=== PATIENT | female | born 1970 | race Caucasian/White ===

== ENCOUNTER 2017-08-27 15:43 | Observation (INO) | payer MEDICAID, OTHER ==
[~2017-08-27] VITALS: Ht 165.1 cm; Wt 86.6 kg
[~2017-08-27 15:43] MED LIST: ESTR42.5V PV; TRAZ50TA4 PO; ZOLO50TA PO
[2017-08-27 15:49] VITALS: BP 141/77; PULSE 100; TEMP 98.3; O2SAT 98
[2017-08-27] MEDS ORDERED: DULO1CAP2 PO (17:09)
[2017-08-27] MEDS ORDERED: AMIT50TA3 PO (17:09)
[2017-08-27 17:46] LABS: AUTOMATED NEUTROPHIL # 3.7 TH/MM3 (1.8-7.7); BASOPHIL % 0.6 % (0.0-2.0); EOSINOPHIL # 0.3 TH/MM3 (0-0.4); HEMATOCRIT 45.1 % (35.0-46.0); HEMO FLAGS DIFF FINAL; LYMPH % 30.7 % (9.0-44.0); MEAN CELL VOLUME 89.8 FL (80.0-100.0); MEAN CORPUSCULAR HEMOGLOBIN 29.8 PG (27.0-34.0); MEAN CORPUSCULAR HGB CONC 33.2 % (32.0-36.0); MONO % 6.5 % (0.0-8.0); NEUT % 58.2 % (16.0-70.0); PLATELET COUNT 249 TH/MM3 (150-450); RED BLOOD COUNT 5.03 MIL/MM3 (4.00-5.30); RED CELL DISTRIBUTION WIDTH 12.4 % (11.6-17.2); WHITE BLOOD COUNT 6.4 TH/MM3 (4.0-11.0)
[2017-08-27 17:53] LABS: CHLORIDE 101 MEQ/L (98-107); POTASSIUM 3.7 MEQ/L (3.5-5.1); SODIUM (NA) 137 MEQ/L (136-145)
[2017-08-27 17:57] LABS: ANION GAP 6 MEQ/L (5-15); BICARBONATE 29.7 MEQ/L (21.0-32.0); BLOOD UREA NITROGEN 15 MG/DL (7-18)
[2017-08-27 17:58] LABS: APTT (PATIENT) 27.3 SEC (24.3-30.1); PROTHROMBIN TIME - PATIENT 10.7 SEC (9.8-11.6)
[2017-08-27 18:00] LABS: ALT (GPT) 90 U/L (10-53); AST (GOT) 68 U/L (15-37); GLOMERULAR FILTRATION RATE 82 ML/MIN (>89)
[2017-08-27 18:02] LABS: TOTAL BILIRUBIN ADULT 0.4 MG/DL (0.2-1.0)
[2017-08-27 18:03] VITALS: BP 120/81; PULSE 81; RESP 16; O2SAT 100
[2017-08-27 18:03] LABS: ALKALINE PHOSPHATASE 99 U/L (45-117)
--- NOTE | 2017-08-27 18:14 | PD ---
HPI Chief Complaint: Numbness/Tingling Time Seen by Provider: 17:06 Travel History International Travel<30 days: No Contact w/Intl Traveler<30days: No Traveled to known affect area: No History of Present Illness HPI This is a 47-year-old female who reports that she has been told she may have lupus in the past 2 presents to the emergency department having not felt right all day ever since she woke up this morning. Her family says that this morning she started to curse and throw things. She says throughout the day she has developed some numbness and tingling in her right arm and right leg and is having some trouble getting her words out. She says these symptoms while been happening for a day. They're constant and severe and she is not acting herself. She says that her doctor ordered an outpatient MRI on her which she just got the results of and they told her that she has something that looks like white matter disease and she needs to follow-up with a neurologist. She's not seen a neurologist yet. PFSH Past Medical History Arthritis: Yes Asthma: Yes Autoimmune Disease: Yes (LUPUS) Depression: Yes Heart Rhythm Problems: Yes (MVR) Cardiovascular Problems: Yes (mitral valve prolapse and reguritation ) Diminished Hearing: No Gastrointestinal Disorders: Yes (REFLUX) Genitourinary: Yes (REFLUX) Immune Disorder: Yes (LUPUS) Respiratory: Yes (asthma) Tetanus Vaccination: < 5 Years Influenza Vaccination: Yes ?: Not : 4 Para: 2 Miscarriage: 2 Past Surgical History Appendectomy: Yes Section: No Cholecystectomy: Yes Hysterectomy: Yes (partial) Social History Alcohol Use: Yes ("SOCIAL") Tobacco Use: No Substance Use: No Allergies-Medications (Allergen,Severity, Reaction): Coded Allergies: Sulfa (Sulfonamide Antibiotics) (Unverified Allergy, Mild, RASH, 08/27/17) Reported Meds & Prescriptions Reported Meds & Active Scripts Active Reported Duloxetine DR (Duloxetine HCl) 30 Mg Capdr 30 Mg PO DAILY Amitriptyline (Amitriptyline HCl) 50 Mg Tab 50 Mg PO HS Review of Systems Except as stated in HPI: all other systems reviewed are Neg Physical Exam Narrative GENERAL:Well appearing, no acute distress SKIN: Focused skin assessment warm and dry. HEAD: Atraumatic. Normocephalic. EYES: Pupils equal and round. No injection or drainage. ENT: Moist mucous membranes NECK: Trachea midline. CARDIOVASCULAR: Regular rate and rhythm. No murmur appreciated. RESPIRATORY: Clear to auscultation. Breath sounds equal bilaterally. GASTROINTESTINAL: Abdomen soft, non-tender, nondistended. MUSCULOSKELETAL: No obvious deformities. NEUROLOGICAL: Awake and alert. No obvious cranial nerve deficits. Intermittent word finding difficulty, ataxia of the right upper extremity which seems a little jagged an abrupt and may be nonphysiologic, 4+ out of 5 strength in the right upper extremity and right lower extremity with 5 out of 5 strength in the left upper and left lower extremities. PSYCHIATRIC: Appropriate mood and affect; insight and judgment normal. Data Data Last Documented VS Vital Signs Date Time Temp Pulse Resp B/P (MAP) Pulse Ox O2 Delivery O2 Flow Rate FiO2 08/27/17 18:03 81 16 120/81 (94) 100 08/27/17 15:49 98.3 Orders Orders Complete Blood Count With Diff (08/27/17 17:22) Comprehensive Metabolic Panel (08/27/17 17:22) ^ Insert Iv (08/27/17 17:22) Prothrombin Time / Inr (Pt) (08/27/17 17:22) Act Partial Throm Time (Ptt) (08/27/17 17:22) Ct Brain W/O Iv Contrast(Rout) (08/27/17 ) Labs Laboratory Tests Test 08/27/17 17:33 White Blood Count 6.4 TH/MM3 Red Blood Count 5.03 MIL/MM3 Hemoglobin 15.0 GM/DL Hematocrit 45.1 % Mean Corpuscular Volume 89.8 FL Mean Corpuscular Hemoglobin 29.8 PG Mean Corpuscular Hemoglobin Concent 33.2 % Red Cell Distribution Width 12.4 % Platelet Count 249 TH/MM3 Mean Platelet Volume 7.7 FL Neutrophils (%) (Auto) 58.2 % Lymphocytes (%) (Auto) 30.7 % Monocytes (%) (Auto) 6.5 % Eosinophils (%) (Auto) 4.0 % Basophils (%) (Auto) 0.6 % Neutrophils # (Auto) 3.7 TH/MM3 Lymphocytes # (Auto) 2.0 TH/MM3 Monocytes # (Auto) 0.4 TH/MM3 Eosinophils # (Auto) 0.3 TH/MM3 Basophils # (Auto) 0.0 TH/MM3 CBC Comment DIFF FINAL Differential Comment Prothrombin Time 10.7 SEC Prothromb Time International Ratio 1.0 RATIO Activated Partial Thromboplast Time 27.3 SEC Blood Urea Nitrogen 15 MG/DL Creatinine 0.75 MG/DL Random Glucose 92 MG/DL Total Protein 7.9 GM/DL Albumin 3.8 GM/DL Calcium Level 8.9 MG/DL Alkaline Phosphatase 99 U/L Aspartate Amino Transf (AST/SGOT) 68 U/L Alanine Aminotransferase (ALT/SGPT) 90 U/L Total Bilirubin 0.4 MG/DL Sodium Level 137 MEQ/L Potassium Level 3.7 MEQ/L Chloride Level 101 MEQ/L Carbon Dioxide Level 29.7 MEQ/L Anion Gap 6 MEQ/L Estimat Glomerular Filtration Rate 82 ML/MIN MDM Medical Decision Making Medical Screen Exam Complete: Yes Emergency Medical Condition: Yes Interpretation(s) No leukocytosis Electrolytes are reassuring Coags are normal Differential Diagnosis Ischemic stroke, hemorrhagic stroke, multiple sclerosis, tumor Narrative Course This is a 47-year-old female who presents to the emergency department with strange symptoms. She woke with some this morning. They range from aggression and cursing to numbness in her right arm and right leg and word finding difficulty. Labs are reassuring. CT of the head is unremarkable. Her neurologic exam is somewhat inconsistent and may be nonphysiologic.Despite this given her history of possible lupus and her objective findings on exam I think she should stay in the hospital for a stroke and neurologic evaluation. Diagnosis Primary Impression: Weakness Admitting Information Admitting Physician Requests: Observation Alejandra Gonsalez MD Aug 27, 2017 18:14
--- NOTE | 2017-08-27 18:46 | RADRPT ---
EXAM DATE/TIME: 08/27/2017 18:26 [facility] COMPARISON: No previous studies available for comparison. INDICATIONS : Altered mental status. RADIATION DOSE: 57.32 CTDIvol (mGy) MEDICAL HISTORY : Cardiovascular disease. Gastroesophageal reflux disease. Renal calculi.Mitral valve prolapse, Lupus, UTI's SURGICAL HISTORY : Appendectomy. Cholecystectomy.Partial hysterectomy ENCOUNTER: Initial ACUITY: 1 day PAIN SCALE: 0/10 LOCATION: cranial TECHNIQUE: Multiple contiguous axial images were obtained of the head. Using automated exposure control and adj ustment of the mA and/or kV according to patient size, radiation dose was kept as low as reasonably a chievable to obtain optimal diagnostic quality images. DICOM format image data is available electro nically for review and comparison. FINDINGS: CEREBRUM: The ventricles are normal for age. No evidence of midline shift, mass lesion, hemorrhage or acute in farction. No extra-axial fluid collections are seen. POSTERIOR FOSSA: The cerebellum and brainstem are intact. The 4th ventricle is midline. The cerebellopontine angle i s unremarkable. EXTRACRANIAL: The visualized portion of the orbits is intact. SKULL: The calvaria is intact. No evidence of skull fracture. CONCLUSION: No acute disease. Tru Phillips MD on August 27, 2017 at 18:44 Board Certified Radiologist. This report was verified electronically.
[2017-08-27 19:00] VITALS: BP 136/79; PULSE 84; RESP 18; O2SAT 100
[2017-08-27] MEDS ORDERED: GADODIAMIDE PF 287 MG/ML 20 ML VIAL (for RAD MRI) IVCONTRAST ONE (19:21)
[2017-08-27] MEDS ORDERED: SODIUM CHLORIDE 0.9% FLUSH 10 ML FLUSH IV FLUSH PRN (19:30)
[2017-08-27] MEDS ORDERED: ACETAMINOPHEN 325 MG TAB PO PRN (19:30)
[2017-08-27] MEDS ORDERED: BISACODYL 10 MG SUPP RECTAL PRN (19:30)
[2017-08-27] MEDS ORDERED: SENNOSIDES 8.6 MG TAB PO PRN (19:30)
[2017-08-27] MEDS ORDERED: MAGNESIUM HYDROXIDE SUSP 30 ML CUP PO PRN (19:30)
[2017-08-27] MEDS ORDERED: ACETAMINOPHEN/HYDROcodone 325 MG/5 MG TAB PO PRN (19:30)
[2017-08-27] MEDS ORDERED: ONDANSETRON HCL 4 MG/2 ML VIAL IVP PRN (19:30)
[2017-08-27] MEDS ORDERED: LACTULOSE SYRUP 20 GM/30 ML CUP PO PRN (19:30)
[2017-08-27 20:23] LABS: BLOOD, URINE NEG (NEG); GLUCOSE,URINE NEG (NEG); KETONE, URINE NEG (NEG); NITRITE,URINE NEG (NEG); PH, URINE 7.5 (5.0-8.5)
[2017-08-27 20:29] LABS: BETA HCG QUANT LESS THAN 1 MIU/ML (0-5)
[2017-08-27] MEDS: SODIUM CHLOR 0.9% 1000 ML INJ 1,000 ML IV SCH (20:41)
[2017-08-27] MEDS: ACETAMINOPHEN/HYDROcodone 325 MG/10 MG TAB PO PRN (20:41)
[2017-08-27 20:54] LABS: BACTERIA, URINE FEW /hpf; METHOD OF COLLECTION CLEAN CATCH; MUCUS URINE FEW /lpf (OCC); SQUAMOUS EPITHELIAL CELL URINE >8 /hpf (0-5); URINE COLOR YELLOW (YELLW/STRAW)
[2017-08-27 20:55] LABS: COMMENT (UR) CULT NOT INDICATED; CULTURE IF INDICATED CULT NOT INDICATED
[2017-08-27] MEDS: SODIUM CHLORIDE 0.9% FLUSH 10 ML FLUSH IV FLUSH SCH (21:00)
[2017-08-27 21:47] VITALS: BP 131/78
[2017-08-27 22:42] VITALS: BP_SYST 135; BP_SYST 141; BP_DIAS 69; BP_DIAS 89; PULSE 78; PULSE 80; RESP 12; RESP 16; TEMP 96.5; TEMP 96.6; O2SAT 95
[2017-08-27 23:00] VITALS: PULSE 87
[2017-08-28] MEDS: DOCUSATE SODIUM 50 MG/SENNA 8.6 MG TAB PO SCH ×3 (00:03→21:23)
[2017-08-28] MEDS: ACETAMINOPHEN/HYDROcodone 325 MG/10 MG TAB PO PRN ×6 (00:03→23:32)
[2017-08-28 04:47] VITALS: BP 104/64; PULSE 75; RESP 18; TEMP 96.7; O2SAT 98
[2017-08-28] MEDS: SODIUM CHLOR 0.9% 1000 ML INJ 1,000 ML IV SCH ×3 (06:22→23:34)
[2017-08-28 07:11] LABS: AUTOMATED NEUTROPHIL # 1.9 TH/MM3 (1.8-7.7); BASOPHIL % 0.5 % (0.0-2.0); EOSINOPHIL # 0.3 TH/MM3 (0-0.4); EOSINOPHIL % 5.4 % (0.0-4.0); HEMATOCRIT 37.8 % (35.0-46.0); HEMO FLAGS DIFF FINAL; LYMPH % 47.7 % (9.0-44.0); LYMPHOCYTE # 2.5 TH/MM3 (1.0-4.8); MEAN CORPUSCULAR HEMOGLOBIN 30.2 PG (27.0-34.0); MEAN CORPUSCULAR HGB CONC 33.5 % (32.0-36.0); MONO % 8.8 % (0.0-8.0); NEUT % 37.6 % (16.0-70.0); PLATELET COUNT 214 TH/MM3 (150-450); RED CELL DISTRIBUTION WIDTH 12.3 % (11.6-17.2); WHITE BLOOD COUNT 5.1 TH/MM3 (4.0-11.0)
[2017-08-28 07:23] LABS: CHLORIDE 104 MEQ/L (98-107); POTASSIUM 3.8 MEQ/L (3.5-5.1); SODIUM (NA) 138 MEQ/L (136-145)
[2017-08-28 07:50] VITALS: BP 113/76; PULSE 78; RESP 20; TEMP 96.5; O2SAT 99
[2017-08-28 08:00] LABS: ALKALINE PHOSPHATASE 81 U/L (45-117); ALT (GPT) 73 U/L (10-53); ANION GAP 6 MEQ/L (5-15); AST (GOT) 51 U/L (15-37); BICARBONATE 27.8 MEQ/L (21.0-32.0); BLOOD UREA NITROGEN 18 MG/DL (7-18); GLOMERULAR FILTRATION RATE 102 ML/MIN (>89); TOTAL BILIRUBIN ADULT 0.6 MG/DL (0.2-1.0)
--- NOTE | 2017-08-28 08:46 | RADRPT ---
EXAM DATE/TIME: 08/28/2017 08:14 [facility] COMPARISON: CT BRAIN W/O CONTRAST, August 27, 2017, 18:26. INDICATIONS : Right sided weakness. MEDICAL HISTORY : Lupus. SURGICAL HISTORY : Appendectomy. Cholecystectomy. Hysterectomy. ENCOUNTER: Initial ACUITY: 2 day PAIN SCORE: 0/10 LOCATION: cranial TECHNIQUE: Multiplanar, multisequence MRI of the brain was performed without contrast. FINDINGS: CEREBRUM: The ventricles are normal for age. No evidence of midline shift, mass lesion, hemorrhage or acute in farction. No extraaxial fluid collections are seen. The pituitary gland and suprasellar cistern are normal in configuration. WHITE MATTER: Multiple high signal spots are seen in the white matter tracts bilaterally. POSTERIOR FOSSA: The cerebellum and brainstem are intact. The 4th ventricle is midline. The cerebellopontine angle is unremarkable. The cerebellar tonsils are normal in position. DIFFUSION IMAGING: No focal areas of restricted diffusion are seen. No evidence of acute infarction. EXTRACRANIAL: The visualized portions of the orbits and paranasal sinuses are unremarkable. CONCLUSION: There are multiple high signal spots in the white matter tracts bilaterally. Given patient's current age, a demyelinating process such as multiple sclerosis would be a primary consideration. Recommend f ollowup MRI in 6 months to check stability. Kalyan Becerra MD on August 28, 2017 at 8:42 Board Certified Radiologist. This report was verified electronically.
[2017-08-28] MEDS ORDERED: INFLUENZA VIRUS VACCINE (QUADRIVALENT) 0.5 ML SYR IM ONE (09:00)
[2017-08-28] MEDS: ASPIRIN EC 81 MG TABEC PO SCH (09:14)
[2017-08-28] MEDS: PRAVASTATIN SOD 40 MG TAB PO SCH (09:14)
[2017-08-28] MEDS: SODIUM CHLORIDE 0.9% FLUSH 10 ML FLUSH IV FLUSH SCH ×2 (09:14→21:22)
[2017-08-28 11:50] VITALS: BP 106/69; PULSE 83; RESP 20; TEMP 97.6; O2SAT 99
--- NOTE | 2017-08-28 12:47 | HHI.HP ---
[facility] Susan Rizzo MD Admission Diagnosis weakness Diagnoses: (1) Neurological complaint Diagnosis: Principal Chief Complaint: Multiple symptoms include headache, memory issues, generalized pain, difficulty thinking, alert vision, change in personality, recurrent falls Travel History International Travel<30 Days: No Contact w/Intl Traveler <30 Da: No Traveled to Known Affected Are: No History of Present Illness Written by Bird Jose, acting as scribe for Dr. Mejia on 08/28/17 at 12: 35. 47-year-old female with known history of asthma, questionable history of lupus, gastroesophageal reflux, mitral valve prolapse who presented to the ER with a plethora of chronic and acute symptoms. Patient states that over the last year she is had symptoms of chronic cephalgia, memory issues where she cannot remember her date of or Social Security number. She has had generalized pain in her entire body. Difficulty in thinking, processing thoughts, and difficulty finding words. She has been undergoing outpatient workup with her primary medical doctor in [facility]. She indicates that she had a MRI done recently in outpatient setting and was notified that there is white matter disease and that she needed to follow-up with the neurologist. Primary medical doctor is arranging referral at this time. However patient had worsening of her symptoms 2 days ago with increased falling. Right leg and right arm pain, and more confusion. Patient has have a rather stressful home situation with autistic son, daughter with osteoporosis, rheumatoid arthritis. She was going to visit her son yesterday, when she woke up she had blurred vision, difficulty with finding the right words to speak. Personality changes with being more angry and yelling. Because of those reasons her boyfriend brought her to the hospital for evaluation. Patient does have a possible history of lupus, however she states she was diagnosed with it in the past and was recently told that she does not have lupus. She was on long-term steroids and that was discontinued one month ago because of the recent change in her diagnosis of no lupus. She states that her sister had workup done and was diagnosed with muscle sclerosis, however her sister is asymptomatic. Patient is very concerned since she has been doing research and is worried that she may have vasculitis or multiple sclerosis. Patient had workup done emergency department and it was recommended by the ER physician that the patient be observed for further recommendations Review of Systems Constitutional: COMPLAINS OF: Fatigue Eyes: COMPLAINS OF: Blurred vision Musculoskeletal: COMPLAINS OF: Joint pain, Muscle aches Neurologic: COMPLAINS OF: Abnormal gait, Headache, Speech Problems, Poor Balance Psychiatric: COMPLAINS OF: Confusion Except as stated in HPI: all other systems reviewed are Neg Past Family Social History Past Medical History Questionable history of lupus Gastroesophageal reflux Mitral valve prolapse, regurgitation Asthma Past Surgical History Left knee surgery as a child Appendectomy Cholecystectomy Partial hysterectomy Reported Medications Reported Meds & Active Scripts Active Reported Duloxetine DR (Duloxetine HCl) 30 Mg Capdr 30 Mg PO DAILY Amitriptyline (Amitriptyline HCl) 50 Mg Tab 50 Mg PO HS Allergies: Coded Allergies: Sulfa (Sulfonamide Antibiotics) (Unverified Allergy, Mild, RASH, 08/27/17) Family History Review does indicate her sister with asymptomatic multiple sclerosis. States mother and father are in their 70s, however does not know their medical history Social History Patient denies any tobacco or illicit drug use. She states that she does drink alcohol moderately in order to ease her pain. She only indicates 1-2 times weekly Physical Exam Vital Signs Vital Signs Date Time Temp Pulse Resp B/P (MAP) Pulse Ox O2 Delivery O2 Flow Rate FiO2 08/28/17 11:50 97.6 83 20 106/69 (81) 99 08/28/17 07:50 96.5 78 20 113/76 (88) 99 08/28/17 04:47 96.7 75 18 104/64 (77) 98 08/28/17 00:19 08/27/17 23:00 87 08/27/17 22:42 96.5 80 16 135/89 (104) 95 08/27/17 21:47 87 16 131/78 (95) 97 08/27/17 21:41 18 08/27/17 19:00 84 16 100 Room Air 08/27/17 19:00 84 18 136/79 (98) 100 Room Air 08/27/17 18:03 81 16 120/81 (94) 100 08/27/17 15:49 98.3 100 141/77 (98) 98 Physical Exam GENERAL: Well-developed, well-nourished, in no acute distress. alert and orientated HEENT: Head is normocephalic without any lesions or masses noted. Facial features are symmetric. Eyes: Pupils equal round reactive to light. Extraocular muscles are intact. Conjunctivae were clear. Oropharyngeal: Pharynx without any erythema edema. Tongue is midline without deviation. Buccal mucosa is moist without any masses or lesions NECK: Supple without any masses. Trachea midline no deviation. No JVD, no bruits are appreciated CARDIAC: Regular rhythm, regular rate. S1/S2 are heard. No murmurs gallops or rubs. LUNGS: Clear to auscultation bilaterally. No wheeze, rhonchi or rales. No use of accessory muscles on inspiration or expiration. ABDOMEN: Soft, nontender. Nondistended. Bowel sounds heard in all 4 quadrants. No organomegaly or masses. Negative rebound, negative guarding EXTREMITIES: No edema, pulses are equal bilaterally. No cyanosis or clubbing NEUROLOGY: Mood and affect appear appropriate. Cranial nerves II through XII grossly intact. Muscle strength 5/5 in upper and lower extremities bilaterally. Deep tendon reflexes are 2+ in upper and lower extremities bilaterally. Laboratory Laboratory Tests Test 08/27/17 17:33 08/27/17 19:40 08/27/17 19:44 08/28/17 06:10 White Blood Count 6.4 5.1 Red Blood Count 5.03 4.20 Hemoglobin 15.0 12.7 Hematocrit 45.1 37.8 Mean Corpuscular Volume 89.8 90.0 Mean Corpuscular Hemoglobin 29.8 30.2 Mean Corpuscular Hemoglobin Concent 33.2 33.5 Red Cell Distribution Width 12.4 12.3 Platelet Count 249 214 Mean Platelet Volume 7.7 7.8 Neutrophils (%) (Auto) 58.2 37.6 Lymphocytes (%) (Auto) 30.7 47.7 Monocytes (%) (Auto) 6.5 8.8 Eosinophils (%) (Auto) 4.0 5.4 Basophils (%) (Auto) 0.6 0.5 Neutrophils # (Auto) 3.7 1.9 Lymphocytes # (Auto) 2.0 2.5 Monocytes # (Auto) 0.4 0.4 Eosinophils # (Auto) 0.3 0.3 Basophils # (Auto) 0.0 0.0 CBC Comment DIFF FINAL DIFF FINAL Differential Comment Prothrombin Time 10.7 Prothromb Time International Ratio 1.0 Activated Partial Thromboplast Time 27.3 Blood Urea Nitrogen 15 18 Creatinine 0.75 0.62 Random Glucose 92 88 Total Protein 7.9 6.4 Albumin 3.8 3.1 Calcium Level 8.9 8.0 Alkaline Phosphatase 99 81 Aspartate Amino Transf (AST/SGOT) 68 51 Alanine Aminotransferase (ALT/SGPT) 90 73 Total Bilirubin 0.4 0.6 Sodium Level 137 138 Potassium Level 3.7 3.8 Chloride Level 101 104 Carbon Dioxide Level 29.7 27.8 Anion Gap 6 6 Estimat Glomerular Filtration Rate 82 102 Human Chorionic Gonadotropin, Quant LESS THAN 1 Urine Collection Type CLEAN CATCH Urine Color YELLOW Urine Turbidity CLEAR Urine pH 7.5 Urine Specific [place] 1.024 Urine Protein NEG Urine Glucose (UA) NEG Urine Ketones NEG Urine Occult Blood NEG Urine Nitrite NEG Urine Bilirubin NEG Urine Leukocyte Esterase NEG Urine WBC 3-5 Urine Squamous Epithelial Cells >8 Urine Bacteria FEW Urine Mucus FEW Microscopic Urinalysis Comment CULT NOT INDICATED Urine Opiates Screen NEG Urine Barbiturates Screen NEG Urine Amphetamines Screen NEG Urine Benzodiazepines Screen NEG Urine Cocaine Screen NEG Urine Cannabinoids Screen NEG Result Diagram: 08/28/17 0610 08/28/17 0610 Imaging Last Impressions Head CT 08/27/17 0000 Signed Impressions: Service Date/Time: Sunday, August 27, 2017 18:26 - CONCLUSION: No acute disease. MD Pearl Pleitez VTE Risk Assessment Capmaria esther VTE Risk Assessment: Mod/High Risk (score >= 2) Caprini Risk Assessment Model Point Value = 1 Point Value = 2 Point Value = 3 Point Value = 5 Age 41-60 Minor surgery BMI > 25 kg/m2 Swollen legs Varicose veins or History of unexplained or recurrent spontaneous Oral contraceptives or hormone replacement Sepsis (< 1 month) Serious lung disease, including pneumonia (< 1 month) Abnormal pulmonary function Acute myocardial infarction Congestive heart failure (< 1 month) History of inflammatory bowel disease Medical patient at bed rest Age 61-74 Arthroscopic surgery Major open surgery (> 45 min) Laparoscopic surgery (> 45 min) Malignancy Confined to bed (> 72 hours) Immobilizing plaster cast Central venous access Age >= 75 History of VTE Family history of VTE Factor V Leiden Prothrombin [id number] Lupus anticoagulant Anticardiolipin antibodies Elevated serum homocysteine Heparin-induced thrombocytopenia Other congenital or acquired thrombophilia Stroke (< 1 month) Elective arthroplasty Hip, pelvis, or leg fracture Acute spinal cord injury (< 1 month) Prophylaxis Regimen Total Risk Factor Score Risk Level Prophylaxis Regimen 0-1 Low Early ambulation 2 Moderate Order ONE of the following: *Sequential Compression Device (SCD) *Heparin 5000 units SQ BID 3-4 Higher Order ONE of the following medications: *Heparin 5000 units SQ TID *Enoxaparin/Lovenox 40 mg SQ daily (WT < 150 kg, CrCl > 30 mL/min) *Enoxaparin/Lovenox 30 mg SQ daily (WT < 150 kg, CrCl > 10-29 mL/min) *Enoxaparin/Lovenox 30 mg SQ BID (WT < 150 kg, CrCl > 30 mL/min) AND/OR *Sequential Compression Device (SCD) 5 or more Highest Order ONE of the following medications: *Heparin 5000 units SQ TID (Preferred with Epidurals) *Enoxaparin/Lovenox 40 mg SQ daily (WT < 150 kg, CrCl > 30 mL/min) *Enoxaparin/Lovenox 30 mg SQ daily (WT < 150 kg, CrCl > 10-29 mL/min) *Enoxaparin/Lovenox 30 mg SQ BID (WT < 150 kg, CrCl > 30 mL/min) AND *Sequential Compression Device (SCD) Assessment and Plan Assessment and Plan Multiple chronic and acute neurological symptoms to include cephalgia, memory issues, generalized pain, difficulty thinking, blurred vision, change in personality with abnormal outpatient MRI with white matter disease CT scan was done which did not indicate any acute abnormality. MRI of the brain showed high signal spots in the white matter bilaterally. Demyelinization process such as MS would be primary consideration. Recommend follow-up MRI in 6 months for stability Neurology consulted for recommendations. Defer further treatment and recommendations whether inpatient versus outpatient to neurology Mild liver enzyme elevation, unknown etiology Could be secondary to alcohol overuse Check hepatitis panel Questionable history of lupus Patient states that she was diagnosed previously, however recently told that she does not have lupus DVT prevention Sequential compression devices This note was transcribed by rian [Bird Jose]. I, Dr. Doreen Mejia personally performed the history, physical exam, and medical decision making; and confirmed the accuracy of the information in the transcribed note. Authenticated by Dr. Doreen Mejia on 08/28/17 at 12:35 Bird Jose Aug 28, 2017 12:47 Doreen Mejia MD Aug 28, 2017 12:50
[2017-08-28 15:00] VITALS: BP 100/76; RESP 20; TEMP 98.4; O2SAT 98
--- NOTE | 2017-08-28 18:16 | MB ---
cc: RAJENDRA CHRISTIAN M.D. DATE OF CONSULTATION: 08/28/2017. REASON FOR CONSULTATION: Right-sided tingling. HISTORY OF PRESENT ILLNESS: She is 47 years old and seen in neurological consultation in regards to right-sided tingling. She indicates an extensive history of symptoms. She has been concerned about multiple sclerosis. Her sister has MS. She is describing that she came in because of worsening of the right-sided tingling, worsening of pain and blurriness. She admits to headaches, memory loss, forgetfulness, anger outbursts. She admits to pain everywhere. The pain comes and goes and she has pain constantly. She admits to difficulty with balance and falls. She says her medical doctor recently did an MRI on her that showed some changes, possibly implicating multiple sclerosis. She takes the Duloxetine 30 milligrams a day and amitriptyline 50 milligrams a day. NEUROLOGICAL EXAMINATION: The neurologic exam shows that she is mildly anxious, alert, oriented. Ocular movements and visual zapien full. Pupils equal and reactive. There is no hemiparesis, though she starts giving way with the right-sided limbs on the motor exam. Reflexes were 1 to 2+ throughout and plantar responses were flexor. IMAGING STUDIES: MRI brain was reviewed. There are some white matter changes suspicious for a demyelinating disorder. The study was done without contrast. LABORATORY DATA: CBC is essentially normal. Sedimentation rate is normal at 4. Chemistry also remarkable for mildly elevated AST and ALT. B12 level is 1211. TSH mildly elevated to 3.9. HCG negative. Toxicology negative. RPR pending,. Hepatitis screening pending. ASSESSMENT: This woman presents with extensive symptomatology, chronic pain, nonspecific cognitive complaints and some paresthesias lately involving the right side. The MRI showed findings of possible demyelinating disorder. I believe obtaining a lumbar puncture for a multiple sclerosis profile would be of benefit. This was discussed with the patient and she is in agreement. I will request MRI brain with contrast as well as an MRI cervical spine. I We will follow the neurological course. Thank you for asking us to assist in her care. MD MJ Hopper/Kp /5:55 PM /6:03 PM
--- NOTE | 2017-08-28 19:34 | RADRPT ---
EXAM DATE/TIME: 08/28/2017 18:55 [facility] COMPARISON: No previous studies available for comparison. INDICATIONS : Right side weakness. CONTRAST: 18 cc Omniscan (gadodiamide) IV MEDICAL HISTORY : Lupus. SURGICAL HISTORY : Cholecystectomy. Hysterectomy. Appendectomy. ENCOUNTER: Initial ACUITY: 1 day PAIN SCORE: 3/10 LOCATION: Right side TECHNIQUE: Multiplanar, multisequence MRI examination of the cervical spine was performed. FINDINGS: VERTEBRAE: Normal vertebral body height. Homogeneous marrow signal. ALIGNMENT: No evidence of subluxation. CORD: Normal configuration and signal. POST FOSSA: The cerebellar tonsils are normal in position. POST-CONTRAST: No abnormal areas of enhancement are seen. C2-C3: The thecal sac has a normal configuration. There is no evidence of disc herniation or spinal canal stenosis. The neural foramina are patent bilaterally. C3-C4: The thecal sac has a normal configuration. There is no evidence of disc herniation or spinal canal s tenosis. The neural foramina are patent bilaterally. C4-C5: The thecal sac has a normal configuration. There is no evidence of disc herniation or spinal canal s tenosis. The neural foramina are patent bilaterally. C5-C6: The thecal sac has a normal configuration. There is no evidence of disc herniation or spinal canal s tenosis. The neural foramina are patent bilaterally. C6-C7: The thecal sac has a normal configuration. There is no evidence of disc herniation or spinal canal s tenosis. The neural foramina are patent bilaterally. C7-T1: The thecal sac has a normal configuration. There is no evidence of disc herniation or spinal canal s tenosis. The neural foramina are patent bilaterally. CONCLUSION: Normal examination. Tru Phillips MD on August 28, 2017 at 19:30 Board Certified Radiologist. This report was verified electronically.
--- NOTE | 2017-08-28 19:48 | RADRPT ---
EXAM DATE/TIME: 08/28/2017 18:55 [facility] COMPARISON: MRI BRAIN W/O CONTRAST, August 28, 2017, 8:14. INDICATIONS : Right sided weakness. CONTRAST: 18 cc Omniscan (gadodiamide) IV MEDICAL HISTORY : Lupus. SURGICAL HISTORY : Appendectomy. Cholecystectomy. Hysterectomy. ENCOUNTER: Initial ACUITY: 1 day PAIN SCORE: 3/10 LOCATION: Right side. TECHNIQUE: Multiplanar, multisequence MRI of the brain was performed following the administration of paramagneti c contrast. FINDINGS: There is no evidence of abnormal intra-or extra-axial enhancement. The T2 hyperintense changes descri bed on the unenhanced study failed to reveal any enhancement. CSF spaces appear normal. CONCLUSION: No evidence of enhancing lesions. Tru Phillips MD on August 28, 2017 at 19:44 Board Certified Radiologist. This report was verified electronically.
[2017-08-28 20:25] VITALS: PULSE 82
[2017-08-28 20:50] VITALS: BP 100/65; PULSE 85; RESP 18; TEMP 97.5; O2SAT 94
[2017-08-29] VITALS (7 sets, daily range): BP systolic 100–143; BP diastolic 70–78; PULSE 71–101; RESP 18–20; TEMP 96.3–98.6; O2SAT 97–100
[2017-08-29 06:08] LABS: INDIRECT BILIRUBIN 0.4 MG/DL (0.0-0.8); TOTAL BILIRUBIN ADULT 0.5 MG/DL (0.2-1.0)
[2017-08-29] MEDS: ACETAMINOPHEN/HYDROcodone 325 MG/10 MG TAB PO PRN ×4 (06:51→21:03)
[2017-08-29] MEDS: ASPIRIN EC 81 MG TABEC PO SCH (07:42)
[2017-08-29] MEDS: PRAVASTATIN SOD 40 MG TAB PO SCH (07:42)
[2017-08-29] MEDS: DOCUSATE SODIUM 50 MG/SENNA 8.6 MG TAB PO SCH ×2 (07:42→20:48)
[2017-08-29] MEDS: SODIUM CHLORIDE 0.9% FLUSH 10 ML FLUSH IV FLUSH SCH ×2 (07:43→20:48)
[2017-08-29] MEDS: SODIUM CHLOR 0.9% 1000 ML INJ 1,000 ML IV SCH ×2 (12:44→20:49)
--- NOTE | 2017-08-29 14:03 | HHI.PR ---
Subjective Remarks 47 years old female admitted for a follow up on spots of demyelinization on a brain MRI possibility of a mass, neurology consulted planning on LP today Patient reported "My fingers is killing me" Patient still look very concerned about her diagnosis, she asked me about the lumbar puncture procedure which I explained to her about Objective Vitals Vital Signs Date Time Temp Pulse Resp B/P (MAP) Pulse Ox O2 Delivery O2 Flow Rate FiO2 08/29/17 12:00 98.2 101 18 128/72 (90) 97 08/29/17 08:00 97.7 84 18 124/72 (89) 98 08/29/17 04:29 98.6 71 20 100/78 (85) 98 08/29/17 00:08 96.7 73 20 112/70 (84) 97 08/28/17 20:50 97.5 85 18 100/65 (77) 94 08/28/17 20:25 82 08/28/17 15:00 98.4 20 100/76 (84) 98 I/O 08/28/17 08/28/17 08/28/17 08/29/17 08/29/17 08/29/17 07:00 15:00 23:00 07:00 15:00 23:00 Intake Total 1000 ml 170 ml 600 ml 400 ml Output Total 500 ml 700 ml Balance 1000 ml -500 ml -530 ml 600 ml 400 ml Intake Oral 170 ml IV Total 1000 ml 600 ml 400 ml Output Urine Total 500 ml 700 ml # Voids 1 3 4 # Bowel Movements 0 Result Diagram: 08/28/17 0610 08/28/17 0610 Objective Remarks GENERAL: This is a well-nourished, well-developed patient, in no apparent distress. SKIN: No rashes, warm and dry HEAD: Atraumatic. Normocephalic. EYES: Pupils equal round and reactive. Extraocular motions intact. No scleral icterus. ENT: Nose without bleeding, or drainage, Airway patent. NECK: Trachea midline. Supple CARDIOVASCULAR: Regular rate and rhythm without murmurs, gallops, or rubs. RESPIRATORY: Fair air entry bilaterally. No wheezes, rales, or rhonchi. GASTROINTESTINAL: Abdomen soft, non-tender, nondistended. Positive bowel sounds MUSCULOSKELETAL: Extremities without clubbing, cyanosis, or edema. Pedal pulses appreciated NEUROLOGICAL: Awake and alert. Moves all extremity. Normal speech.no focal neurological deficit A/P Problem List: (1) Neurological complaint ICD Code: R29.90 - Unspecified symptoms and signs involving the nervous system Assessment and Plan Multiple chronic and acute neurological symptoms to include cephalgia, memory issues, generalized pain, difficulty thinking, blurred vision, change in personality with abnormal outpatient MRI with white matter disease CT scan was done which did not indicate any acute abnormality. MRI of the brain showed high signal spots in the white matter bilaterally. Demyelinization process such as MS would be primary consideration. Recommend follow-up MRI in 6 months for stability Roberth of the neck within normal limit Neurology consulted , appreciated their input planning on LP Mild liver enzyme elevation, unknown etiology Possibly secondary to alcohol overuse Awaiting hepatitis panel Questionable history of lupus Patient states that she was diagnosed previously, however recently told that she does not have lupus DVT prevention Sequential compression devices Doreen Mejia MD Aug 29, 2017 14:03
[2017-08-30] VITALS (7 sets, daily range): BP systolic 119–156; BP diastolic 73–84; PULSE 71–84; RESP 18–20; TEMP 96.5–97.3; O2SAT 96–100
[2017-08-30] MEDS: ASPIRIN EC 81 MG TABEC PO SCH (08:15)
[2017-08-30] MEDS: DOCUSATE SODIUM 50 MG/SENNA 8.6 MG TAB PO SCH ×2 (08:15→20:46)
[2017-08-30] MEDS: PRAVASTATIN SOD 40 MG TAB PO SCH (08:15)
[2017-08-30] MEDS: SODIUM CHLOR 0.9% 1000 ML INJ 1,000 ML IV SCH ×3 (08:16→19:02)
[2017-08-30] MEDS: SODIUM CHLORIDE 0.9% FLUSH 10 ML FLUSH IV FLUSH SCH ×2 (08:16→20:47)
[2017-08-30] MEDS: ACETAMINOPHEN/HYDROcodone 325 MG/10 MG TAB PO PRN ×4 (08:22→22:50)
--- NOTE | 2017-08-30 11:59 | HHI.PR ---
Subjective Remarks Patient seen in follow-up for weakness and for abnormal MRI. Lumbar puncture expected later today. Patient does complain of right lower extremity discomfort. Objective Vitals Vital Signs Date Time Temp Pulse Resp B/P (MAP) Pulse Ox O2 Delivery O2 Flow Rate FiO2 08/30/17 08:00 96.7 76 18 144/75 (98) 98 08/30/17 04:00 96.8 75 20 140/81 (100) 98 08/30/17 00:00 97.1 73 20 119/79 (92) 98 08/29/17 22:03 20 08/29/17 20:00 79 08/29/17 20:00 97.2 80 18 143/72 (95) 98 08/29/17 16:00 96.3 76 18 140/77 (98) 100 08/29/17 12:00 98.2 101 18 128/72 (90) 97 I/O 08/29/17 08/29/17 08/29/17 08/30/17 08/30/17 08/30/17 07:00 15:00 23:00 07:00 15:00 23:00 Intake Total 600 ml 400 ml 1600 ml 1140 ml 220 ml Output Total 900 ml Balance 600 ml 400 ml 1600 ml 240 ml 220 ml Intake Oral 600 ml 240 ml IV Total 600 ml 400 ml 1000 ml 900 ml 220 ml Output Urine Total 900 ml # Voids 4 4 3 # Bowel Movements 0 Result Diagram: 08/28/17 0610 08/28/17 0610 Imaging Last Impressions Cervical Spine MRI 08/28/17 0000 Signed Impressions: Service Date/Time: Monday, August 28, 2017 18:55 - CONCLUSION: Normal examination. Tru Phillips MD Brain MRI 08/28/17 0000 Signed Impressions: Service Date/Time: Monday, August 28, 2017 18:55 - CONCLUSION: No evidence of enhancing lesions. Tru Phillips MD Head CT 08/27/17 0000 Signed Impressions: Service Date/Time: Sunday, August 27, 2017 18:26 - CONCLUSION: No acute disease. Tru Phillips MD Objective Remarks GENERAL: This is a well-nourished, well-developed patient, in no apparent distress. CARDIOVASCULAR: Regular rate and rhythm without murmurs, gallops, or rubs. RESPIRATORY: Clear to auscultation. Breath sounds equal bilaterally. No wheezes , rales, or rhonchi. GASTROINTESTINAL: Abdomen soft, non-tender, nondistended. Normal active bowel sounds MUSCULOSKELETAL: Extremities without clubbing, cyanosis, or edema. NEURO: Alert & Oriented x4 to person, place, time, situation. Moves all ext x4 A/P Problem List: (1) Neurological complaint ICD Code: R29.90 - Unspecified symptoms and signs involving the nervous system Plan: MRI is worrisome for demyelinating disorder, continue follow-up with lumbar puncture, IR Neurology consult appreciated Add PT/OT as patient feels she is unable to care for herself RPR, toxicology hepatitis profile negative Discharge Planning Pending LP and rehabilitation eval, likely discharge home ? home health Stacey Orantes MD Aug 30, 2017 11:59
--- NOTE | 2017-08-30 15:25 | PD.RAD ---
Post Procedure Progress Note Pre Procedure Diagnosis: (1) Weakness Post Procedure Diagnosis: (1) Weakness Procedure Date: Aug 30, 2017 Supervising Radiologist: Austin Lorenzana JR Proceduralist/Assist: Andrea Canchola RT(R), Julien Rutherford RT(R) Anesthesia: Local Plan of Activity Patient to Unit: Nursing Unit Patient Condition: Good See PACS Report for procedural detail/treatment Spinal Procedure Lumbar Puncture L3-L4 Fluid Removal (CCs): 5 Fluid Description: Clear Puncture Time: 15:10 Findings: Patient did NOT tolerate procedure well. Had a fair amount of discomfort from start to finish. Was only able to obtain 5ml of CSF. Plan If more fluid needed should consider sedation prior to repeat LP. Jr. Salomón,Austin Oneil MD Aug 30, 2017 15:25
--- NOTE | 2017-08-30 16:32 | RADRPT ---
EXAM DATE/TIME: 08/30/2017 14:30 [facility] COMPARISON: No previous studies available for comparison. INDICATIONS : Patient presents with weakness and headaches in need of lumbar puncture to rule out multiple sclerosi s. MEDICAL HISTORY : Questionable history of lupus GERD Mitral daisy prolapse, regurgitation Asthma SURGICAL HISTORY : Left knee sx Appendectomy Reina Partial hysterectomy ENCOUNTER: Initial ACUITY: > 1 year PAIN SCORE: 4/10 LOCATION: Right sided general body aches. LUMBAR PUNCTURE TIME: 15:10 hours FLUORO TIME: 0.8 minutes IMAGE SERIES: 0 ACCESS LEVEL: L3-4 FLUID: 4.5 cc of clear CSF was collected and sent to the laboratory for analysis. PROCEDURE : 1. Fluoroscopic guided lumbar puncture. The risks, benefits and alternatives to the procedure were explained and verbal and written consent w as obtained. The site was prepped in sterile fashion. Full sterile technique was used, including ca p, mask, sterile gloves and gown and a large sterile sheet. Hand hygiene and 2% chlorhexidine and/or betadine/alcohol prep was utilized per protocol for cutaneous antisepsis. The skin and subcutaneous tissues were infiltrated with local anesthetic solution. With fluoroscopic guidance the lumbar thecal sac was punctured at the level above. The patient had co nsiderable discomfort beginning with a very beginning of the passage of the needle through the subcut aneous tissues. The patient had a difficult time during the procedure due to this reason. I was only able to obtain 5 mL CSF fluid. After 5 mL was removed the CSF no longer was able to be obtained. CONCLUSION: The patient had a difficult time secondary to discomfort throughout the procedure. I was only able to get 5 mL of CSF. If repeat lumbar puncture is needed I would suggest sedation. Austin Lorenzana Jr., MD on August 30, 2017 at 16:21 Board Certified Radiologist. This report was verified electronically.
[2017-08-30 16:35] LABS: GROSS BLOOD TUBE #1 1+ (0); GROSS BLOOD TUBE #2 1+ (0); SUPERNATE COLOR TUBE #1 CLEAR (CLEAR); SUPERNATE COLOR TUBE #2 CLEAR (CLEAR); VOLUME TUBE # 2 2.2 ML
[2017-08-30 16:47] LABS: CSF LYMPHOCYTES 0 %; CSF NEUTROPHILS 0 %; WBC TUBE #2 0 /MM3 (0-10)
[2017-08-31] VITALS: BP 111/58; PULSE 89; RESP 20; TEMP 96.3; O2SAT 95
[2017-08-31] MEDS: SODIUM CHLOR 0.9% 1000 ML INJ 1,000 ML IV SCH ×3 (03:29→23:53)
[2017-08-31] MEDS: ACETAMINOPHEN/HYDROcodone 325 MG/10 MG TAB PO PRN ×4 (03:32→23:53)
[2017-08-31 08:00] VITALS: BP 141/86; PULSE 76; RESP 14; TEMP 96.3; O2SAT 95
[2017-08-31] MEDS: ASPIRIN EC 81 MG TABEC PO SCH (08:28)
[2017-08-31] MEDS: PRAVASTATIN SOD 40 MG TAB PO SCH (08:29)
[2017-08-31] MEDS: SODIUM CHLORIDE 0.9% FLUSH 10 ML FLUSH IV FLUSH SCH ×2 (08:29→20:08)
[2017-08-31] MEDS: DOCUSATE SODIUM 50 MG/SENNA 8.6 MG TAB PO SCH ×2 (08:29→20:07)
--- NOTE | 2017-08-31 11:05 | HHI.PR ---
Subjective Remarks Patient seen and evaluated in follow-up for weakness and possible demyelinating taking syndrome. Status post LP but with poor CSF fluid amount due to patient intolerance of the procedure. Objective Vitals Vital Signs Date Time Temp Pulse Resp B/P (MAP) Pulse Ox O2 Delivery O2 Flow Rate FiO2 08/31/17 08:00 96.3 76 14 141/86 (104) 95 08/31/17 00:00 96.3 89 20 111/58 (75) 95 08/30/17 20:00 96.5 84 20 156/83 (107) 96 08/30/17 16:00 97.3 71 18 140/73 (95) 98 08/30/17 12:00 97.3 82 18 140/84 (102) 100 I/O 08/30/17 08/30/17 08/30/17 08/31/17 08/31/17 08/31/17 07:00 15:00 23:00 07:00 15:00 23:00 Intake Total 1140 ml 220 ml 881 ml 480 ml Output Total 900 ml Balance 240 ml 220 ml 881 ml 480 ml Intake Oral 240 ml 480 ml IV Total 900 ml 220 ml 881 ml Output Urine Total 900 ml # Voids 3 4 4 1 # Bowel Movements 0 0 Result Diagram: 08/28/1710 08/28/1710 Objective Remarks GENERAL: This is a well-nourished, well-developed patient, in no apparent distress. CARDIOVASCULAR: Regular rate and rhythm without murmurs, gallops, or rubs. RESPIRATORY: Clear to auscultation. Breath sounds equal bilaterally. No wheezes , rales, or rhonchi. GASTROINTESTINAL: Abdomen soft, non-tender, nondistended. Normal active bowel sounds MUSCULOSKELETAL: Extremities without clubbing, cyanosis, or edema. NEURO: Alert & Oriented x4 to person, place, time, situation. Moves all ext x4 A/P Problem List: (1) Neurological complaint ICD Code: R29.90 - Unspecified symptoms and signs involving the nervous system Plan: MRI is worrisome for demyelinating disorder, continue follow-up with CSF results Neurology consult appreciated PT/OT as patient feels she is unable to care for herself Discharge Planning Likely discharge in a.m. with home healthcare rehabilitation if she requires it , OT Stacey Meadows MD Aug 31, 2017 11:05
[2017-08-31 12:00] VITALS: BP 133/95; PULSE 83; RESP 12; TEMP 97.1; O2SAT 98
[2017-08-31 16:00] VITALS: BP 145/86; PULSE 86; RESP 14; TEMP 98.2; O2SAT 100
[2017-08-31 20:00] VITALS: BP 119/81; PULSE 83; RESP 20; TEMP 96.6; O2SAT 100
[2017-09-01] VITALS: BP 122/74; PULSE 78; RESP 20; TEMP 96.6; O2SAT 97
[2017-09-01 04:00] VITALS: BP 107/72; PULSE 75; RESP 20; TEMP 97; O2SAT 98
[2017-09-01] MEDS: ACETAMINOPHEN/HYDROcodone 325 MG/10 MG TAB PO PRN ×3 (06:27→15:43)
[2017-09-01 08:00] VITALS: BP 105/61; PULSE 74; RESP 16; TEMP 97; O2SAT 95
[2017-09-01] MEDS: DOCUSATE SODIUM 50 MG/SENNA 8.6 MG TAB PO SCH (08:11)
[2017-09-01] MEDS: ASPIRIN EC 81 MG TABEC PO SCH (08:11)
[2017-09-01] MEDS: PRAVASTATIN SOD 40 MG TAB PO SCH (08:11)
[2017-09-01] MEDS: SODIUM CHLORIDE 0.9% FLUSH 10 ML FLUSH IV FLUSH SCH (08:12)
[2017-09-01] MEDS: SODIUM CHLOR 0.9% 1000 ML INJ 1,000 ML IV SCH (10:28)
[2017-09-01 12:00] VITALS: BP 137/83; PULSE 86; RESP 16; TEMP 97.2; O2SAT 96
--- NOTE | 2017-09-01 13:13 | HHI.DCPOC ---
Discharge Care Plan Diagnosis: (1) Neurological complaint (2) Weakness Goals to Promote Your Health * To prevent worsening of your condition and complications * To maintain your health at the optimal level Directions to Meet Your Goals Take your medications as prescribed Follow your dietary instruction Follow activity as directed Keep your appointments as scheduled Take your immunizations and boosters as scheduled If your symptoms worsen call your PCP, if no PCP go to Urgent Care Center or Emergency Room Smoking is Dangerous to Your Health. Avoid second hand smoke Call the 24-hour hour crisis hotline for domestic abuse at Stacey Orantes MD Sep 01, 2017 13:13
--- NOTE | 2017-09-01 13:15 | HHI.DS ---
Discharge Summary Admission Date Aug 27, 2017 at 19:20 Discharge Date: Sep 01, 2017 Admitting Diagnosis weakness (1) Neurological complaint ICD Code: R29.90 - Unspecified symptoms and signs involving the nervous system Procedures LP Brief History - From Admission Written by Bird Jose, acting as scribe for Dr. Mejia on 08/28/17 at 12: 35. 47-year-old female with known history of asthma, questionable history of lupus, gastroesophageal reflux, mitral valve prolapse who presented to the ER with a plethora of chronic and acute symptoms. Patient states that over the last year she is had symptoms of chronic cephalgia, memory issues where she cannot remember her date of or Social Security number. She has had generalized pain in her entire body. Difficulty in thinking, processing thoughts, and difficulty finding words. She has been undergoing outpatient workup with her primary medical doctor in [facility]. She indicates that she had a MRI done recently in outpatient setting and was notified that there is white matter disease and that she needed to follow-up with the neurologist. Primary medical doctor is arranging referral at this time. However patient had worsening of her symptoms 2 days ago with increased falling. Right leg and right arm pain, and more confusion. Patient has have a rather stressful home situation with autistic son, daughter with osteoporosis, rheumatoid arthritis. She was going to visit her son yesterday, when she woke up she had blurred vision, difficulty with finding the right words to speak. Personality changes with being more angry and yelling. Because of those reasons her boyfriend brought her to the hospital for evaluation. Patient does have a possible history of lupus, however she states she was diagnosed with it in the past and was recently told that she does not have lupus. She was on long-term steroids and that was discontinued one month ago because of the recent change in her diagnosis of no lupus. She states that her sister had workup done and was diagnosed with muscle sclerosis, however her sister is asymptomatic. Patient is very concerned since she has been doing research and is worried that she may have vasculitis or multiple sclerosis. Patient had workup done emergency department and it was recommended by the ER physician that the patient be observed for further recommendations CBC/BMP: 08/28/17 0610 08/28/17 0610 Significant Findings Laboratory Tests Test 08/30/17 15:10 08/30/17 15:50 CSF Gross Blood (Tube 1) 1+ (0) CSF Gross Blood (Tube 2) 1+ (0) CSF RBC (Tube 2) 1840 /MM3 (NONE) CSF Total Protein 72.0 MG/DL (15.0-45.0) PE at Discharge GENERAL: This is a well-nourished, well-developed patient, in no apparent distress. CARDIOVASCULAR: Regular rate and rhythm without murmurs, gallops, or rubs. RESPIRATORY: Clear to auscultation. Breath sounds equal bilaterally. No wheezes , rales, or rhonchi. GASTROINTESTINAL: Abdomen soft, non-tender, nondistended. Normal active bowel sounds MUSCULOSKELETAL: Extremities without clubbing, cyanosis, or edema. NEURO: Alert & Oriented x4 to person, place, time, situation. Moves all ext x4 Pt update on day of discharge Patient requiring standby assistance, will benefit from outpatient PT/OT. CSF does show elevated protein however the CSF analysis is incomplete and labs are still pending Hospital Course This patient is a 47-year-old female came in with weakness. She did have abnormal MRI which was suspicious for demyelinating syndrome. Patient subsequently had LP and required physical and outpatient therapy evaluations here. Patient was stable. She was seen by neurology and recommended for an LP with MS studies. Pt Condition on Discharge: Good Discharge Disposition: Disch w/ Home Health Serv Discharge Time: <= 30 minutes Discharge Instructions DIET: Follow Instructions for: As Tolerated, No Restrictions Activities you can perform: Regular-No Restrictions Follow up Referrals: Neurology with Uzma Vivar MD New Orders: Occupational Therapy Physical Therapy Continued Medications: Amitriptyline (Amitriptyline) 50 Mg Tab 50 MG PO HS, TAB Duloxetine DR (Duloxetine DR) 30 Mg Capdr 30 MG PO DAILY, #30 CAP 0 Refills Stacey Orantes MD Sep 01, 2017 13:15
[2017-09-01] MEDS ORDERED: HYDR-3516 PO (13:29)
[2017-09-01] MEDS ORDERED: WALKER WHEELS/F1 MIS (13:31)
[2017-09-01] MEDS ORDERED: COMMODE 3-IN-11 MIS (13:31)
--- NOTE | 2017-09-01 14:05 | HHI.FF ---
Face to Face Verification Diagnosis: (1) Weakness (2) Neurological complaint Home Health Nursing Order: Medical education Signs/symptoms of disease process Nursing assessment with vital signs I have seen patient Brittany Landaverde on 09/01/17. My clinical findings support the need for the requested home health care services because: High risk of falls I certify that my clinical findings support that this patient is homebound because: Unsteady gait/balance Stacey Orantes MD Sep 01, 2017 14:05
[2017-09-01 15:45] VITALS: BP 154/77; PULSE 75; RESP 16; TEMP 98.8; O2SAT 98
[2017-09-02 16:42] LABS: CSF CRYPTOCOCCUS AG CONF ND (NOT DETECTD)
[2017-09-02 23:52] LABS: LYME DISEASE 18KD IGG BAND NON-REACTIVE (NON REACTIV); LYME DISEASE 23 IGG BAND NON-REACTIVE (NON REACTIV); LYME DISEASE 23KD IGM BAND NON-REACTIVE (NONREACTIVE); LYME DISEASE 28KD IGG BAND NON-REACTIVE (NON REACTIV); LYME DISEASE 30KD IGG BAND NON-REACTIVE (NON REACTIV); LYME DISEASE 39 KD IGG BAND NON-REACTIVE (NONREACTIVE); LYME DISEASE 39KD IGM BAND NON-REACTIVE (NONREACTIVE); LYME DISEASE 41KD IGG BAND NON-REACTIVE (NONREACTIVE); LYME DISEASE 41KD IGM BAND NON-REACTIVE (NONREACTIVE); LYME DISEASE 45KD IGG BAND NON-REACTIVE (NONREACTIVE); LYME DISEASE 58KD IGG BAND NON-REACTIVE (NONREACTIVE); LYME DISEASE 66KD IGG BAND NON-REACTIVE (NONREACTIVE); LYME DISEASE 93KD IGG BAND NON-REACTIVE (NONREACTIVE); LYME DISEASE IGM WB NEGATIVE (NONREACTIVE)
== END 2017-09-01 18:21 | disposition home or self-care (01) ==
LOC: PHED 15:43 → PHEDA 19:20 → PH3B 22:06
PROVIDERS: ADMIT Hospitalist; ATTEND Hospitalist
DX: R53.1 Weakness (principal); R51 Headache; R20.2 Paresthesia of skin; R41.3 Other amnesia; J45.909 Unspecified asthma, uncomplicated; F32.9 Major depressive disorder, single episode, unspecified; M19.90 Unspecified osteoarthritis, unspecified site; K21.9 Gastro-esophageal reflux disease without esophagitis; M32.9 Systemic lupus erythematosus, unspecified; Z79.52 Long term (current) use of systemic steroids; G89.29 Other chronic pain
CPT/HCPCS: 62270; 70450; 70551; 70552; 72156; 77003; 80053; 80074; 80076; 80307; 81001; 82040; 82042; 82607; 82746; 82784; 82945; 83873; 83916; 84157; 84443; 84702; 85025; 85610; 85652; 85730; 86403; 86592; 86617; 87070; 87102; 87205; 87206; 87801; 89051; 96360; 96361; 97110; 97116; 97162; 97167; 97535; 99285; A9579; G0378; G8987; G8988; J7030; 86618